=== PATIENT | male | born 1990 | race Caucasian/White ===

== ENCOUNTER → 2019-10-22 | Outpatient (CLI) | payer OTHER | END | disposition home or self-care (01) | LOC: LAB 08:08 | PROVIDERS: ATTEND Nurse Practitioner Family | DX: Z03.818 Encounter for observation for suspected exposure to other biological agents ruled out (principal) ==

== ENCOUNTER → 2019-10-24 | Outpatient (CLI) | payer OTHER | END | disposition home or self-care (01) | LOC: LAB 17:51 | PROVIDERS: ATTEND Nurse Practitioner Family | DX: Z20.828 Contact with and (suspected) exposure to other viral communicable diseases (principal) ==

== ENCOUNTER → 2020-02-11 | Outpatient (CLI) | payer BC ==
[2020-02-11 08:40] LABS: Basophils # (auto) 0 10 ^3/uL (0-0.2); Basophils % (auto) 0.7 % (0.0-2.0); Eosinophils # (auto) 0 10 ^3/uL (0-0.8); Eosinophils % (auto) 0.4 % (0.0-7.0); Hematocrit 40.4 % (41.0-53.0); Hemoglobin 13.7 g/dL (13.5-17.5); Lymphocytes # (auto) 0.7 10 ^3/uL (0.4-5.4); Lymphocytes % (auto) 16.4 % (10.0-50.0); Mean Corpuscular Volume 94.2 fL (80.0-100.0); Monocytes # (auto) 0.7 10 ^3/uL (0-1.3); Monocytes % (auto) 14.8 % (0.0-12.0); Neutrophils % (auto) 67.7 % (37.0-80.0); Nucleated Red Blood Cells % 0.1 %; Platelet Count (auto) 216 10^3/uL (140-450); Red Blood Cells 4.29 10^6/uL (4.5-5.90); Red Cell Distribution Width 12.7 % (11.8-14.3); White Blood Cell 4.4 10^3/uL (4.4-10.8)
== END | disposition home or self-care (01) ==
LOC: LAB 08:14
DX: E83.19 Other disorders of iron metabolism (principal)
CPT/HCPCS: 36415; 83540; 85025

== ENCOUNTER → 2020-02-14 | Outpatient (CLI) | payer OTHER | END | disposition home or self-care (01) | LOC: LAB 07:27 | PROVIDERS: ATTEND Physician Assistant | DX: U07.1 COVID-19 (principal) | CPT/HCPCS: C9803; U0003 ==

== ENCOUNTER 2020-03-09 07:53 | Emergency (ER) | payer OTHER ==
[~2020-03-09] VITALS: Ht 170.2 cm; Wt 83.9 kg
[2020-03-09 08:50] VITALS: BP 132/86
[2020-03-09 12:57] LABS: Hepatitis B Surface Antigen Negative (Negative)
[2020-03-09 14:22] LABS: Hepatitis B Surface Antibody Positive
== END 2020-03-09 09:11 | disposition home or self-care (01) ==
LOC: ER 07:53
DX: S61.031A Puncture wound without foreign body of right thumb without damage to nail, initial encounter (principal); W46.1XXA Contact with contaminated hypodermic needle, initial encounter; Y92.89 Other specified places as the place of occurrence of the external cause; Y99.8 Other external cause status
CPT/HCPCS: 36415; 86703; 86706; 86803; 87340

== ENCOUNTER → 2020-03-25 | Outpatient (CLI) | payer BC, MEDICAID ==
[2020-03-25 08:49] LABS: Basophils # (auto) 0 10 ^3/uL (0-0.2); Basophils % (auto) 0.6 % (0.0-2.0); Eosinophils # (auto) 0 10 ^3/uL (0-0.8); Eosinophils % (auto) 0.6 % (0.0-7.0); Hematocrit 41.4 % (41.0-53.0); Hemoglobin 14.7 g/dL (13.5-17.5); Lymphocytes # (auto) 1.4 10 ^3/uL (0.4-5.4); Lymphocytes % (auto) 28.4 % (10.0-50.0); Mean Corpuscular Hgb Conc. 35.5 g/dL (32.0-36.0); Mean Corpuscular Volume 92.9 fL (80.0-100.0); Monocytes # (auto) 0.4 10 ^3/uL (0-1.3); Monocytes % (auto) 7.7 % (0.0-12.0); Neutrophils # (auto) 3.1 10 ^3/uL (1.6-8.6); Neutrophils % (auto) 62.7 % (37.0-80.0); Platelet Count (auto) 248 10^3/uL (140-450); Red Blood Cells 4.45 10^6/uL (4.5-5.90); Red Cell Distribution Width 13.1 % (11.8-14.3)
[2020-03-25 09:36] LABS: Free T4 (Free Thyroxine) 0.96 ng/dL (0.89-1.76)
[2020-03-25 09:37] LABS: Free T3 3.37 pg/mL (2.3-4.2)
[2020-03-25 09:38] LABS: Folate (Folic Acid) 18.42 ng/mL (5.38-24)
== END | disposition home or self-care (01) ==
LOC: LAB 08:08
DX: E07.9 Disorder of thyroid, unspecified (principal); D51.9 Vitamin B12 deficiency anemia, unspecified; R74.01 Elevation of levels of liver transaminase levels; R79.9 Abnormal finding of blood chemistry, unspecified
CPT/HCPCS: 36415; 82306; 82607; 82746; 83540; 83550; 84439; 84443; 84481; 85025

== ENCOUNTER → 2020-05-21 | Outpatient (CLI) | payer BC, MEDICAID ==
[2020-05-21 15:10] LABS: Basophils # (auto) 0 10 ^3/uL (0-0.2); Basophils % (auto) 0.5 % (0.0-2.0); Eosinophils # (auto) 0 10 ^3/uL (0-0.8); Eosinophils % (auto) 0.5 % (0.0-7.0); Hematocrit 39.9 % (41.0-53.0); Hemoglobin 13.9 g/dL (13.5-17.5); Mean Corpuscular Hemoglobin 32.1 pg (28.0-32.0); Mean Corpuscular Hgb Conc. 34.8 g/dL (32.0-36.0); Mean Corpuscular Volume 92.1 fL (80.0-100.0); Monocytes # (auto) 0.7 10 ^3/uL (0-1.3); Neutrophils # (auto) 3.4 10 ^3/uL (1.6-8.6); Nucleated Red Blood Cells % 0.1 %; Platelet Count (auto) 189 10^3/uL (140-450); Red Blood Cells 4.33 10^6/uL (4.5-5.90); Red Cell Distribution Width 12.8 % (11.8-14.3); White Blood Cell 6.1 10^3/uL (4.4-10.8)
[2020-05-21 15:52] LABS: Albumin 4.1 g/dL (3.4-5.0); Calcium 8.9 mg/dL (8.5-10.1); Potassium 3.9 mmol/L (3.5-5.1)
[2020-05-21 15:59] LABS: BUN/Creatinine Ratio 13.1; Bilirubin, Total 0.4 mg/dL (0.2-1.0); CRP High Sensitivity 2.11 mg/dL (< 0.3); Total Protein 7.8 g/dL (6.4-8.2)
== END | disposition home or self-care (01) ==
LOC: LAB 13:03
PROVIDERS: ATTEND Specialist
DX: B38.0 Acute pulmonary coccidioidomycosis (principal); B39.9 Histoplasmosis, unspecified; R50.9 Fever, unspecified; Z20.822 Contact with and (suspected) exposure to COVID-19
CPT/HCPCS: 36415; 80053; 82728; 85025; 85652; 86141

== ENCOUNTER → 2020-06-12 | Outpatient (CLI) | payer OTHER ==
[2020-06-12 10:29] LABS: Hepatitis B Surface Antibody Positive
[2020-06-12 13:37] LABS: Hepatitis B Surface Antigen Negative (Negative)
== END | disposition home or self-care (01) ==
LOC: LAB 08:16
PROVIDERS: ATTEND Nurse Practitioner
DX: B17.9 Acute viral hepatitis, unspecified (principal); Z20.6 Contact with and (suspected) exposure to human immunodeficiency virus [HIV]
CPT/HCPCS: 36415; 86703; 86706; 86803; 87340

== ENCOUNTER → 2020-06-16 | Outpatient (CLI) | payer BC ==
[2020-06-16 09:08] LABS: Basophils # (auto) 0 10 ^3/uL (0-0.2); Basophils % (auto) 0.4 % (0.0-2.0); Eosinophils # (auto) 0 10 ^3/uL (0-0.8); Eosinophils % (auto) 0.5 % (0.0-7.0); Hematocrit 41.3 % (41.0-53.0); Hemoglobin 14.5 g/dL (13.5-17.5); Lymphocytes # (auto) 1.5 10 ^3/uL (0.4-5.4); Mean Corpuscular Hemoglobin 32.4 pg (28.0-32.0); Mean Corpuscular Hgb Conc. 35.1 g/dL (32.0-36.0); Mean Corpuscular Volume 92.5 fL (80.0-100.0); Monocytes # (auto) 0.5 10 ^3/uL (0-1.3); Monocytes % (auto) 8.3 % (0.0-12.0); Neutrophils # (auto) 3.4 10 ^3/uL (1.6-8.6); Neutrophils % (auto) 62.8 % (37.0-80.0); Nucleated Red Blood Cells % 0.1 %; Platelet Count (auto) 192 10^3/uL (140-450); Red Blood Cells 4.47 10^6/uL (4.5-5.90); Red Cell Distribution Width 12.9 % (11.8-14.3); White Blood Cell 5.5 10^3/uL (4.4-10.8)
[2020-06-16 09:50] LABS: Potassium 4.1 mmol/L (3.5-5.1)
[2020-06-16 10:02] LABS: BUN/Creatinine Ratio 19.7; CRP High Sensitivity 0.11 mg/dL (< 0.3); Calcium 8.8 mg/dL (8.5-10.1)
[2020-06-16 11:36] LABS: Free T4 (Free Thyroxine) 0.93 ng/dL (0.89-1.76)
[2020-06-16 11:38] LABS: Free T3 3.47 pg/mL (2.3-4.2); T3 Total 1.29 ng/mL (0.60-1.81)
[2020-06-16 11:40] LABS: Folate (Folic Acid) 21.16 ng/mL (5.38-24)
== END | disposition home or self-care (01) ==
LOC: LAB 08:05
PROVIDERS: ATTEND Family Medicine
DX: D51.9 Vitamin B12 deficiency anemia, unspecified (principal); E07.9 Disorder of thyroid, unspecified; R82.90 Unspecified abnormal findings in urine; R79.9 Abnormal finding of blood chemistry, unspecified
CPT/HCPCS: 36415; 80048; 82746; 83540; 84439; 84443; 84480; 84481; 85025; 85652; 86038; 86141; 86308; 86376; 86431

== ENCOUNTER → 2021-05-08 | Outpatient (CLI) | payer BC ==
[2021-05-08 11:13] LABS: Potassium 4.1 mmol/L (3.5-5.1)
[2021-05-08 11:19] LABS: % Iron Saturation 58.7 % (20-55)
[2021-05-08 11:20] LABS: Basophils # (auto) 0.1 10 ^3/uL (0-0.2); Basophils % (auto) 1.1 % (0.0-2.0); Eosinophils # (auto) 0 10 ^3/uL (0-0.8); Eosinophils % (auto) 0.8 % (0.0-7.0); Hematocrit 42.6 % (41.0-53.0); Hemoglobin 14.9 g/dL (13.5-17.5); Lymphocytes # (auto) 1.6 10 ^3/uL (0.4-5.4); Lymphocytes % (auto) 31.2 % (10.0-50.0); Mean Corpuscular Hemoglobin 32.3 pg (28.0-32.0); Mean Corpuscular Volume 92.2 fL (80.0-100.0); Monocytes # (auto) 0.5 10 ^3/uL (0-1.3); Monocytes % (auto) 9.6 % (0.0-12.0); Neutrophils # (auto) 2.9 10 ^3/uL (1.6-8.6); Neutrophils % (auto) 57.3 % (37.0-80.0); Nucleated Red Blood Cells % 0.1 %; Red Blood Cells 4.63 10^6/uL (4.5-5.90)
[2021-05-08 11:40] LABS: Albumin 3.9 g/dL (3.4-5.0); BUN/Creatinine Ratio 10.8; Bilirubin, Total 0.9 mg/dL (0.2-1.0); Total Protein 7.6 g/dL (6.4-8.2)
== END | disposition home or self-care (01) ==
LOC: LAB 10:21
PROVIDERS: ATTEND Family Medicine
DX: Z00.00 Encounter for general adult medical examination without abnormal findings (principal); Z86.39 Personal history of other endocrine, nutritional and metabolic disease
CPT/HCPCS: 36415; 80053; 80061; 83036; 83540; 83550; 84443; 85025; 86376

== ENCOUNTER → 2021-10-01 | Outpatient (CLI) | payer BC ==
[2021-10-01 09:00] LABS: Urine WBC None Seen /hpf (0 - 3)
[2021-10-01 09:03] LABS: Basophils # (auto) 0 10 ^3/uL (0-0.2); Basophils % (auto) 0.9 % (0.0-2.0); Eosinophils # (auto) 0 10 ^3/uL (0-0.8); Eosinophils % (auto) 0.6 % (0.0-7.0); Hematocrit 43.3 % (41.0-53.0); Hemoglobin 14.6 g/dL (13.5-17.5); Lymphocytes # (auto) 1.6 10 ^3/uL (0.4-5.4); Lymphocytes % (auto) 29.3 % (10.0-50.0); Mean Corpuscular Hemoglobin 31.1 pg (28.0-32.0); Mean Corpuscular Hgb Conc. 33.8 g/dL (32.0-36.0); Monocytes # (auto) 0.5 10 ^3/uL (0-1.3); Monocytes % (auto) 8.4 % (0.0-12.0); Neutrophils # (auto) 3.3 10 ^3/uL (1.6-8.6); Neutrophils % (auto) 60.8 % (37.0-80.0); Nucleated Red Blood Cells % 0.1 %; White Blood Cell 5.5 10^3/uL (4.4-10.8)
[2021-10-01 09:09] LABS: Urine Bacteria NONE SEEN /hpf (None Seen); Urine Blood Negative /uL (Negative); Urine Specific Gravity 1.018 (1.001-1.035)
[2021-10-01 09:16] LABS: INR 0.98 (0.9-1.15)
[2021-10-01 09:26] LABS: Calcium 8.9 mg/dL (8.5-10.1); Magnesium 2.1 mg/dL (1.6-2.6); Potassium 4.4 mmol/L (3.5-5.1); Uric Acid 5.9 mg/dL (3.5-7.2)
[2021-10-01 09:31] LABS: % Iron Saturation 22.9 % (20-55); BUN/Creatinine Ratio 16.5; Bilirubin, Direct 0.1 mg/dL (0-0.2); Bilirubin, Total 0.4 mg/dL (0.2-1.0); Total Protein 7.4 g/dL (6.4-8.2)
[2021-10-01 09:37] LABS: Thyroid Stimulating Hormone 3.2 uIU/mL (0.358-3.74)
[2021-10-01 10:18] LABS: Prostate Specific Antigen 0.64 ng/mL (0.0-4.0)
== END | disposition home or self-care (01) ==
LOC: LAB 08:34
PROVIDERS: ATTEND Nurse Practitioner Acute Care
DX: Z13.220 Encounter for screening for lipoid disorders (principal); Z13.1 Encounter for screening for diabetes mellitus; R29.90 Unspecified symptoms and signs involving the nervous system; D51.9 Vitamin B12 deficiency anemia, unspecified; E03.9 Hypothyroidism, unspecified; E78.2 Mixed hyperlipidemia; R74.02 Elevation of levels of lactic acid dehydrogenase [LDH]; R82.90 Unspecified abnormal findings in urine
CPT/HCPCS: 36415; 80053; 80061; 81001; 82248; 82306; 82607; 83036; 83540; 83550; 83615; 83735; 84100; 84153; 84443; 84550; 85025; 85610; 86850; 86900; 86901; 87086

== ENCOUNTER → 2023-02-04 | Outpatient (CLI) | payer BC ==
[2023-02-04 11:53] LABS: Basophils # (auto) 0 10 ^3/uL (0-0.2); Basophils % (auto) 0.4 % (0.0-2.0); Eosinophils # (auto) 0 10 ^3/uL (0-0.8); Eosinophils % (auto) 0.6 % (0.0-7.0); Hematocrit 41.9 % (41.0-53.0); Hemoglobin 14.6 g/dL (13.5-17.5); Lymphocytes # (auto) 2.1 10 ^3/uL (0.4-5.4); Lymphocytes % (auto) 38.2 % (10.0-50.0); Mean Corpuscular Hemoglobin 31.8 pg (28.0-32.0); Mean Corpuscular Hgb Conc. 34.7 g/dL (32.0-36.0); Mean Corpuscular Volume 91.6 fL (80.0-100.0); Monocytes # (auto) 0.4 10 ^3/uL (0-1.3); Monocytes % (auto) 8.2 % (0.0-12.0); Neutrophils # (auto) 2.9 10 ^3/uL (1.6-8.6); Neutrophils % (auto) 52.6 % (37.0-80.0); Red Blood Cells 4.58 10^6/uL (4.5-5.90); Red Cell Distribution Width 13.1 % (11.8-14.3); White Blood Cell 5.5 10^3/uL (4.4-10.8)
[2023-02-04 12:27] LABS: % Iron Saturation 36.3 % (20-55); Alanine Aminotransferase 27 U/L (7-40); Albumin 4.7 g/dL (3.2-4.8); Alkaline Phosphatase 91 U/L (46-116); Anion Gap 5 (5-15); BUN/Creatinine Ratio 13.8 (10.0-20.0); Blood Urea Nitrogen 11 mg/dL (9-23); Calcium 9.4 mg/dL (8.7-10.4); Carbon Dioxide 27 mmol/L (20-30); Chloride 106 mmol/L (98-107); Glucose 91 mg/dL (74-106); Potassium 3.9 mmol/L (3.5-5.1); Sodium 138 mmol/L (136-145); Uric Acid 7.3 mg/dL (3.7-9.2)
[2023-02-04 12:28] LABS: Bilirubin, Total 0.6 mg/dL (0.2-1.0); Total Protein 7.3 g/dL (5.7-8.2)
[2023-02-04 12:31] LABS: Folate (Folic Acid) 18.17 ng/mL (>5.38)
[2023-02-04 12:33] LABS: Aspartate Aminotransferase 18 U/L (13-40)
[2023-02-04 13:03] LABS: Erythrocyte Sedimentation Rate 6 mm/hr (0-20)
[2023-02-05 07:07] LABS: Rheumatoid Arthritis Factor 13.5 IU/mL (<14.0)
[2023-02-05 13:06] LABS: Anti-Nuclear Antibody Direct Positive (Negative)
== END | disposition home or self-care (01) ==
LOC: LAB 11:08
PROVIDERS: ATTEND Family Medicine
DX: Z00.00 Encounter for general adult medical examination without abnormal findings (principal); R76.8 Other specified abnormal immunological findings in serum
CPT/HCPCS: 36415; 80053; 82607; 82746; 83036; 83540; 83550; 84403; 84443; 84550; 85025; 85652; 86038; 86431

== ENCOUNTER → 2024-07-25 | Outpatient (CLI) | payer BC ==
[2024-07-25 12:21] LABS: Basophils # (auto) 0 10 ^3/uL (0-0.2); Basophils % (auto) 0.4 % (0.0-2.0); Eosinophils # (auto) 0 10 ^3/uL (0-0.8); Eosinophils % (auto) 0.1 % (0.0-7.0); Hematocrit 39.9 % (41.0-53.0); Hemoglobin 13.6 g/dL (13.5-17.5); Lymphocytes # (auto) 1.8 10 ^3/uL (0.4-5.4); Lymphocytes % (auto) 33.1 % (10.0-50.0); Mean Corpuscular Hemoglobin 31.1 pg (28.0-32.0); Mean Corpuscular Hgb Conc. 34.1 g/dL (32.0-36.0); Mean Corpuscular Volume 91.2 fL (80.0-100.0); Monocytes # (auto) 0.3 10 ^3/uL (0-1.3); Monocytes % (auto) 5.9 % (0.0-12.0); Neutrophils # (auto) 3.2 10 ^3/uL (1.6-8.6); Neutrophils % (auto) 60.5 % (37.0-80.0); Nucleated Red Blood Cells % 0.1 %; Platelet Count (auto) 213 10^3/uL (140-450); Red Blood Cells 4.38 10^6/uL (4.5-5.90); Red Cell Distribution Width 13.3 % (11.8-14.3); White Blood Cell 5.3 10^3/uL (4.4-10.8)
[2024-07-25 12:49] LABS: Alanine Aminotransferase 22 U/L (7-40); Albumin 4.7 g/dL (3.2-4.8); Alkaline Phosphatase 64 U/L (46-116); Anion Gap 11 (5-15); Aspartate Aminotransferase 19 U/L (13-40); BUN/Creatinine Ratio 15.6 (10.0-20.0); Bilirubin, Total 0.7 mg/dL (0.2-1.0); Blood Urea Nitrogen 15 mg/dL (9-23); CRP High Sensitivity 0.07 mg/dL (<1.0); Calcium 10.1 mg/dL (8.7-10.4); Carbon Dioxide 27 mmol/L (20-31); Chloride 103 mmol/L (98-107); Glucose 89 mg/dL (74-106); HDL Cholesterol 52 mg/dL (40-59); Potassium 3.9 mmol/L (3.5-5.1); Sodium 141 mmol/L (136-145); Total Protein 7.2 g/dL (5.7-8.2); Triglycerides 62 mg/dL (< 150)
[2024-07-25 12:50] LABS: Cholesterol 278 mg/dL (< 200); LDL Cholesterol 211 mg/dL (< 100)
== END | disposition home or self-care (01) ==
LOC: LAB 11:56
PROVIDERS: ATTEND Internal Medicine
DX: I10 Essential (primary) hypertension (principal)
CPT/HCPCS: 36415; 80053; 80061; 82306; 82607; 83036; 84403; 84443; 85025; 86141